=== PATIENT | female | born 1980 | race Caucasian/White ===

== ENCOUNTER 2016-12-09 20:42 | Emergency (ER) | payer BC ==
[2016-12-09 20:50] VITALS: BP 120/72
--- NOTE | 2016-12-09 22:09 | RAD ---
INDICATION: 3 days of right thumb pain COMPARISON: None. TECHNIQUE: 4 views of the right hand were obtained. FINDINGS: There is mild swelling and induration involving the subcutaneous tissue of the right thumb. The adequately corticated bones are in normal alignment. No significant focal osseous abnormality or fracture is seen. Joint spaces appear maintained. IMPRESSION: Radiographically apparent soft tissue swelling involving the right thumb without underlying fracture or dislocation. If the patient's symptoms persist, follow-up imaging is recommended.
--- NOTE | 2016-12-09 22:15 | UC ---
Hand/Wrist HPI - HPI Summary HPI Summary: The patient comes in today for: 1. Right thumb pain: Onset: "a couple days ago." Palliative/provocative: Touching makes it worse. Ice makes it feel better. Quality: Throbbing. Region: Distal phalanx of the right thumb. Severity: 6/10 Time: Constant. Associated symptoms: Event: She does not remember any obvious injurious event, but states "I must have bumped it on something." FEvers: None. Drainage: None. Previous evaluation: She states that there has been green discoloration of the nail for about a month--this is not new. IT was previously evaluated by Dr. Clifton a financial service representative who did not find any fungus by her report. * - History Of Current Complaint Chief Complaint: UCUpperExtremity Stated Complaint: RIGHT HAND/THUMB INJURY Hx Obtained From: Patient Hx Last Menstrual Period: 11/23/16 ?: No - Allergies/Home Medications Allergies/Adverse Reactions: Allergies Allergy/AdvReac Type Severity Reaction Status Date / Time Amoxicillin Allergy Rash Verified 12/09/16 20:50 Home Medications: Home Medications Cetirizine* [ZyrTEC*] 10 mg PO DAILY 12/09/16 [History Confirmed 12/09/16] Citalopram TAB* [Celexa TAB*] 40 mg PO DAILY 12/09/16 [History Confirmed ] PMH/Surg Hx/FS Hx/Imm Hx Previously Healthy: No - Allergies, OCD. Endocrine History Of: Denies: Diabetes, Thyroid Disease, Hyperthyroidism, Hypothyroidism, Dyslipidemia Cardiovascular History Of: Denies: Cardiac Disorders, Hypertension, Pacemaker/ICD, Myocardial Infarction , Congestive Heart Failure, Atrial Fibrillation, Deep Vein Thrombosis, Bleeding Disorders Respiratory History Of: Denies: COPD, Asthma, Bronchitis, Pneumonia, Pulmonary Embolism GI/ History Of: Denies: Gastroesophageal Reflux, Ulcer, Gastrointestinal Bleed, Gall Bladder Disease, Kidney Stones, Diverticulitis, Renal Disease, Urosepsis Neurological History Of: Denies: TIA, CVA, Dementia, Seizures, Migraine Psychological History Of: Reports: Anxiety Denies: Depression, Bipolar Disorder, Schizophrenia, Post Traumatic Stress Disorder Cancer History Of: Denies: Lung Cancer, Colorectal Cancer, Breast Cancer, Prostate Cancer, Cervical Cancer Other History Of: Negative For: HIV, Hepatitis B, Hepatitis C, Anticoagulant Therapy - Surgical History Surgical History: Yes Surgery Procedure, Year, and Place: dental - Family History Known Family History: Positive: Hypertension Negative: Cardiac Disease - Social History Occupation: Employed Full-time Alcohol Use: None Substance Use Type: None Smoking Status (MU): Heavy Every Day Tobacco Smoker Review of Systems Constitutional: Negative Skin: Negative Eyes: Negative ENT: Negative Respiratory: Negative Cardiovascular: Negative Gastrointestinal: Negative Genitourinary: Negative Musculoskeletal: Arthralgia, Myalgia All Other Systems Reviewed And Are Negative: Yes Physical Exam Triage Information Reviewed: Yes Appearance: Well-Appearing, No Pain Distress, Well-Nourished Vital Signs: Initial Vital Signs Temp 97.9 F 12/09/16 20:44 Pulse 76 12/09/16 20:44 Resp 14 12/09/16 20:44 BP 120/72 12/09/16 20:44 Pulse Ox 100 12/09/16 20:44 Vital Signs Reviewed: Yes Eyes: Positive: Conjunctiva Clear. Negative: Discharge ENT: Positive: Hearing grossly normal. Negative: Pharyngeal erythema, Nasal congestion, Nasal drainage, TM bulging, TM dull, TM red, Tonsillar swelling, Tonsillar exudate Dental: Negative: Gross Decay/Caries @, Dental Fracture @ Neck: Positive: Supple, Nontender, No Lymphadenopathy. Negative: Nuchal Rigidity Respiratory: Positive: Chest non-tender, Lungs clear, No respiratory distress, No accessory muscle use. Negative: Crackles, Wheezing Cardiovascular: Positive: RRR, No Murmur Abdomen Description: Positive: Nontender, No Organomegaly, Soft. Negative: Distended, Guarding Musculoskeletal: Positive: Strength Intact, ROM Intact, Other: - Right thumb: There is non-erythematous redness of the pad of the right thumb. There is tenderness, but no ecchymosis or redness. There is slight redness and edema at the base of the nail suggesting an early paronychia. But, this is non-tender. There is no sub ungual hematoma. Neurological: Positive: Alert, Muscle Tone Normal Psychological: Positive: Age Appropriate Behavior, Consolable Skin: Negative: rashes, breakdown Diagnostics - Radiology No standard instances Xray Interpretation: No Acute Changes Radiology Interpretation Completed By: Radiologist Hand/Wrist Course/Dx - Course Course Of Treatment: Patient was told that I did not have an obvious diagnosis for her thumb pain and swelling and suggested that she follow up with one of the local hand surgeons. Will cover her with hydrocodone if her ibuprofen does not help. - Differential Dx/Diagnosis Differential Diagnosis/HQI/PQRI: Contusion, Sprain, Strain Provider Diagnoses: Pain of the distal phalanx of the right thumb--etiology undetermined. Possilble ganglion cyst? Early paronychia. Discharge - Discharge Plan Condition: Stable Disposition: HOME Referrals: Qian Hauser MD [Medical Doctor] - Zack Rivera MD [Medical Doctor] - Additional Instructions: Please see one of the hand surgeons as soon as you can for further evaluation. If you get worse, please go to the ER. You may use your home ibuprofen up to 800 mg every 6 hours as needed for pain. Diagnosis: Thumb swelling/pain.
== END 2016-12-09 22:34 | disposition home or self-care (01) ==
LOC: UCCORT 20:42
DX: M79.644 Pain in right finger(s) (principal); L03.011 Cellulitis of right finger; Z88.1 Allergy status to other antibiotic agents; F17.210 Nicotine dependence, cigarettes, uncomplicated
CPT/HCPCS: 99202; G0463

== ENCOUNTER 2017-02-02 08:10 | Day surgery (SDC) | payer BC ==
[~2017-02-02 08:10] MED LIST: Buffered Lidocaine 1% SYRIN* 3 ML/SYR SYRINGE INTRADERM ONE; Famotidine IV* 10 MG/ML 2 ML (20 mg) IV ONE
[2017-02-02] MEDS ORDERED: ceFAZolin 2 GM PREMIX(*) 2 GM/50 ML BAG IVPB ONE (08:33)
[2017-02-02] MEDS ORDERED: Dexamethasone IV* 4 MG/ML 1 ML (4 MG) ONE (08:34)
[2017-02-02] MEDS ORDERED: Famotidine IV* 10 MG/ML 2 ML (20 mg) ONE (08:34)
[2017-02-02] MEDS: Dexamethasone IV* 4 MG/ML 1 ML (4 MG) IV SLOW PU ONE (09:03)
[2017-02-02] MEDS ORDERED: Bupivacaine 0.25% SDV* 30 ML ONE (10:05)
[2017-02-02] MEDS ORDERED: Clindamycin 900 MG IVPREMIX(* 900 MG/50 ML SDV IV ONE (10:07)
[2017-02-02] MEDS ORDERED: Lidocaine 2% PF * 5 ML VIAL ONE (10:18)
[2017-02-02] MEDS ORDERED: Propofol* 10 MG/ML 20 ML BTL IV PUSH ONE (10:18)
[2017-02-02] MEDS ORDERED: fentaNYL* 50 MCG/ML 2 ML VIAL (100 MCG VIAL) ONE (10:18)
[2017-02-02] MEDS ORDERED: Midazolam* 1 MG/ML 2 ML VIAL (2 MG) ONE (10:18)
[2017-02-02] MEDS ORDERED: PROCHLORPERAZINE INJ 5 MG/ML 2 ML VIAL IV PRN (10:51)
[2017-02-02] MEDS ORDERED: HYDROcodone/ACETAMIN 5-325 MG* 1 TAB PO PRN (10:51)
[2017-02-02] MEDS ORDERED: Ketorolac INJ* 30 MG/ML 1 ML VIAL IV PRN (10:51)
[2017-02-02] MEDS ORDERED: fentaNYL* 50 MCG/ML 2 ML VIAL (100 MCG VIAL) IV PRN (10:51)
[2017-02-02] MEDS ORDERED: oxyCODONE/Acetamin 5/325 MG* TAB PO PRN (10:51)
[2017-02-02 12:18] VITALS: BP 116/79
--- NOTE | 2017-02-03 04:38 | OP ---
DATE OF OPERATION: 02/02/17 - [facility] DATE OF : 76 SURGEON: Zack Rivera MD HAND WOODWORKING SANDER: RAFIQ Manuel ANESTHESIOLOGIST: Milagros Soto MD ANESTHESIA: Local MAC with right thumb digital block. PRE-OP DIAGNOSIS: Right thumb dystrophic nail and subungual mass seen on MRI. There was discoloration of the nail distal to the site of the mass consistent with a typical chronic fungal infection in the nail. POST-OP DIAGNOSIS: Right thumb dystrophic nail and subungual mass seen on MRI. There was discoloration of the nail distal to the site of the mass consistent with a typical chronic fungal infection in the nail. OPERATIVE PROCEDURE: 1. Removal of dystrophic, diseased nail plate. 2. Excision of right thumb subungual mass. INDICATIONS: Aruna is a 36-year-old female. She has had chronic issues with the right thumb finger tip. She has had a dystrophic nail for many years. She has been seen by a medical technicians who trimmed some of the nail back and put her on antifungal medications, but the nail grew back. She developed quite a large hump in the nail and significant dystrophy in addition to the discoloration of the nail distal to the site of the hump. I had seen her. Given that the nail is completely normal appearing proximally and then had the appearance of a fungal infected nail and given the abnormal shape of the nail I obtained an MRI which showed a 3-mm subungual mass under the proximal aspect of the sterile matrix with some erosion into the bone. I felt that this could represent a glomus tumor or a chronic area of fungal infection. She is also having some numbness and tingling in the fingers. I got some electrodiagnostic studies which were negative. We talked about risks and benefits and she wants to proceed with removal of the nail plate and removal of the subungual mass. ESTIMATED BLOOD LOSS: 2 mL. COMPLICATIONS: None. FINDINGS: Significant bony erosion in the area of the mass. DESCRIPTION OF PROCEDURE: Aruna was seen in the preoperative holding area and the correct site, side, and procedure were identified. We then came back to the operating room where she got some anesthesia and then I performed a right thumb digital block with 0.25% Marcaine. The arm was then prepped and draped in the usual fashion and a formal time-out was performed. I began by using the curved Iris scissors to elevate the distal aspect of the nail. It really was not too adherent to the sterile matrix and in fact there was significant animal hair present underneath the distal 5 to 6 mm of the detached nail plate that did not come off with the scrub, given the fact that it was actually deep to the nail plate. I went ahead and elevated the nail plate all the way back to the nail fold. The nail was completely healthy in the nail fold and this was quite proximal to the level of the mass and so I went ahead and amputated off the nail leaving the proximal nail in place in the nail fold. The nail plate was divided into multiple sections and was sent for anaerobic, aerobic, and fungal cultures. Additionally, I sent a specimen off to the pathologist for a LV prep for just generally to be examined. A firm nodular mass was palpable underneath the diseased sterile matrix. I went ahead and took a [place] blade and made a longitudinal incision through the sterile matrix. Full thickness flaps were raised off between the mass or superficial matrix. I defined the borders of the mass and then excised this subperiosteally. Just ulnar to the midline there was a significant divot in the bone, almost a crater like erosion into the bone. This had been seen on the MRI preop and was expected. I went ahead and fully excised the mass and sent this off to the pathologist. There was some additional soft tissue present in the deep part of the bony erosion and so I curetted this out and sent this off to the lab for aerobic, anaerobic, and fungal cultures. The area was cleaned off all unhealthy appearing soft tissue. I curetted out the bony erosion which was lined by a thin layer of cortical bone in the deep margin. Once I felt like I had it really cleaned I went ahead and soaked the thumb into to Betadine solution for a few minutes. After I had removed the nail plate and removed all the hair that was deep to the nail plate. I had gone ahead and handed off all the dirty instruments and towel that was down on the table and I had cleaned the finger with some Betadine as well at that point. At this point I went ahead and took some 6-0 Chromic gut suture and repaired the longitudinal incision through the matrix. Everything was irrigated out. I went ahead and dressed the finger tip with some Xeroform, some 1 inch Hakeem, and a Coban dressing. Please note that prior to avulsing off the nail plate I had placed a Tourni-Cot on the right thumb. After I had the Coban dressing partially in place I released the Tourni-Cot and the thumb tip pinked up immediately. I finished placing the dressing. She was then taken to the recovery room in stable condition. POSTOPERATIVE PLAN: I'll have her take fluconazole pending the results of the cultures and I'm going to have her put some lotrimin cream on the nail bed twice daily as well. [id number]/[facility] #: [id number] MTDD
== END 2017-02-02 12:09 | disposition home or self-care (01) ==
LOC: OREAST 08:10
PROVIDERS: ATTEND Orthopaedic Surgery Hand Surgery
DX: M79.89 Other specified soft tissue disorders (principal); L60.3 Nail dystrophy; F17.210 Nicotine dependence, cigarettes, uncomplicated; G56.01 Carpal tunnel syndrome, right upper limb
CPT/HCPCS: 87070; 87073; 87077; 87101; 87102; 87186; 87205; 88304; 88305; 88312; J0690; J1100; J2250; J2704; J3010